=== PATIENT | female | born 1980 | race Caucasian/White ===

== ENCOUNTER 2024-10-11 14:16 | Emergency (ER) | payer OTHER ==
[~2024-10-11] VITALS: Ht 165.1 cm; Wt 61.2 kg
[2024-10-11] MEDS ORDERED: SODIUM CHLORIDE 0.9% 500 ML IV ONE (15:00)
[2024-10-11] MEDS ORDERED: Ketorolac Tromethamine 30 MG/ML VIAL IV ONE (15:00)
[2024-10-11] MEDS ORDERED: TRIAMTERENE-HC1 EACH PO (15:05)
[2024-10-11] MEDS ORDERED: TOPIRAMATE100 M2 PO (15:05)
[2024-10-11] MEDS ORDERED: TRAMADOL HCL50 MG PO (15:05)
[2024-10-11] MEDS ORDERED: METHOCARBAMOL500 M1 PO (15:05)
[2024-10-11] MEDS ORDERED: LINZESS145 MC1 PO (15:05)
[2024-10-11] MEDS ORDERED: ESCITALOPRAM OX20 MG PO (15:06)
[2024-10-11] MEDS ORDERED: PANTOPRAZOLE SO40 MG PO (15:07)
[2024-10-11 15:24] LABS: BILIRUBIN Negative (Negative); BLOOD Negative (Negative); CLARITY Clear (Clear); COLOR Yellow (Yellow); GLUCOSE Negative (Negative); KETONE Negative (Negative); LEUKO ESTERASE 2+ (Negative); NITRITE Negative (Negative); PH 5.5 (4.5-8.0); UROBILINOGEN 0.2 E.U./dl (0.0-1.0)
[2024-10-11 15:33] LABS: BACTERIA TRACE; WBC 51-100 wbc/hpf (0-5)
[2024-10-11] MEDS ORDERED: Ciprofloxacin Hydrochloride 500 MG TAB PO ONE (17:00)
[2024-10-11] MEDS ORDERED: BUPIVACAINE 0.25% 10 ML VIAL SC ONE ×2 (17:05→17:30)
[2024-10-11] MEDS ORDERED: methylPREDNISolone sod succ 125 MG VIAL IM ONE (17:05)
[2024-10-11] MEDS ORDERED: CYCLOBENZAPRINE5 M3 PO (17:26)
[2024-10-11] MEDS ORDERED: PREDNISONE20 M1 PO (17:26)
[2024-10-11] MEDS ORDERED: CIPROFLOXACIN250 MG PO (17:31)
== END 2024-10-11 18:11 | disposition home or self-care (01) ==
LOC: ED 14:16
PROVIDERS: Nurse Practitioner
DX: N39.0 Urinary tract infection, site not specified (principal); G89.29 Other chronic pain; M54.42 Lumbago with sciatica, left side; M54.41 Lumbago with sciatica, right side; M79.605 Pain in left leg; M79.604 Pain in right leg; G43.909 Migraine, unspecified, not intractable, without status migrainosus; Z88.0 Allergy status to penicillin; Z88.8 Allergy status to other drugs, medicaments and biological substances; Z79.899 Other long term (current) drug therapy